=== PATIENT | male | born 1960 | race Caucasian/White ===

== ENCOUNTER 2018-12-21 12:42 | Emergency (ER) | payer OTHER, SELFPAY ==
[2018-12-21 12:50] VITALS: BP 131/91; PULSE 85; RESP 17; TEMP 36.9; BMI 22.0
[2018-12-21 13:00] VITALS: BP 118/93; PULSE 72; RESP 20; O2SAT 98
--- NOTE | 2018-12-21 13:02 | DI.RAD.S_ITS ---
PROCEDURE: XR CHEST 1V INDICATIONS: Chest pain and shortness of breath TECHNIQUE: One view of the chest was acquired. COMPARISON: None. FINDINGS: Surgical changes and devices: None. Lungs and pleura: The left lateral lower lung scarring or atelectasis. The coarse calcification projecting at the right lung base. Lungs are otherwise clear. No pleural effusions or pneumothorax. Mediastinum: Mediastinal contours appear normal. Heart size is normal. Bones and chest wall: No suspicious bony lesions. Overlying soft tissues appear unremarkable. IMPRESSION: Left lower lateral lower lung atelectasis or scar. No other acute process. Dictated by: Valencia Rhodes M.D. on 12/21/2018 at 13:33 Approved by: Valencia Rhodes M.D. on 12/21/2018 at 13:34
--- NOTE | 2018-12-21 13:05 | ED_ITS ---
HPI - SOB/Dyspnea <CARMELITA Fam - Last Filed: 12/21/18 21:42> General Chief Complaint: Shortness of Breath/Dyspnea Stated Complaint: blood pressure issues Time Seen by Provider: 12/21/18 12:45 Source: patient Mode of arrival: ambulatory Limitations: no limitations History of Present Illness HPI Narrative: 58-year-old male with a history of appendectomy, hypertension, and jaw surgery, presents emergency presents emergency department today complaining of decreased appetite for the past week and vomiting every morning for the past week after he tries to drink juice. He states he has also been constipated, his last bowel movement was today after taking Ex-Lax but he states it was small, his last real bowel movement was 3-4 days ago. Patient noticed that he had developed intermittent chest pain today while sitting on the couch, he states it was a dull aching 2/10 located in his right chest that lasted a few minutes and then resolve spontaneously. He also reports shortness of breath for the past 3-4 days, he states this is worse when he tries to go up stairs, he also states it is difficult to take a big breath. Patient states he has smoked a pack of cigarettes a day since age 11 and drinks a 12 pack of beer a week. Reports lightheadedness after standing up the past 2 days. Patient denies headaches, vision changes, chest pain at this time, abdominal pain, diarrhea, fevers, swelling in the legs, or other complaints. Related Data Previous Rx's Medication Instructions Recorded albuterol sulfate 2 puff INHALATION Q4-6H PRN #18 12/21/18 gram ondansetron 4 mg PO Q8H #7 tab 12/21/18 Allergies Allergy/AdvReac Type Severity Reaction Status Date / Time No Known Drug Allergies Allergy Verified 12/21/18 14:19 Review of Systems <CARMELITA Fam - Last Filed: 12/21/18 21:42> Review of Systems Narrative: REVIEW OF SYSTEMS: GENERAL: Denies fever or chills. HENT: No head trauma, hearing loss or sore throat. EYES: No loss of vision, double vision, eye pain, or irritation. CARDIOVASCULAR: Complains of chest pain, see HPI. RESPIRATORY: Complains of shortness of breath, see HPI GASTROINTESTINAL: Complains of diarrhea, see HPI. GENITOURINARY: No flank pain or dysuria. MUSCULOSKELETAL: No pain, weakness, or deformities. INTEGUMENTARY: No rash, lesions, or pruritus. NEURO: No numbness, tingling, memory loss, or confusion. PSYCH: No behavior or mood changes. PFSH <CARMELITA Fam - Last Filed: 12/21/18 21:42> Medical History Hypertension (Acute) Social History (Updated 12/21/18 @ 21:36 by CARMELITA Fam) Smoking Status: Current every day smoker Social History Smoking Status: Current every day smoker Exam <CARMELITA Fam - Last Filed: 12/21/18 21:42> Initial Vital Signs Initial Vital Signs: Vital Signs Temperature 98.5 F 12/21/18 12:50 Pulse Rate 85 12/21/18 12:50 Respiratory Rate 17 12/21/18 12:50 Blood Pressure 131/91 H 12/21/18 12:50 PHYSICAL EXAMINATION: GENERAL: Well groomed, alert, and cooperative. Answers questions promptly and appropriately. Vital signs noted. HENT: Normocephalic, atraumatic. Ear canals patent. Oral mucosa is pink and moist. EYES: Conjunctiva pink, sclera white, no periorbital swelling. CHEST: Normal to inspection and without deformities. CARDIOVASCULAR: S1 and S2 sounds normal. Regular rate and rhythm, no murmurs, clicks, or bruits. No pedal edema. RESPIRATORY: Normal respiratory rate, trachea midline, airway patent. No stridor, nasal flaring or accessory muscle use. Slightly decreased lung sounds to bases bilaterally. No wheezes or crackles auscultated. GASTROINTESTINAL: Bowel sounds normoactive. Abdomen is soft and non-tender. No organomegaly. MUSCULOSKELETAL: Normal gait and coordination. Equal tone and mass bilaterally. EXTREMITIES: CMS intact. Moves all extremities. SKIN: Warm, dry, soft, appropriate color for ethnicity. No lesions, rashes, or wounds. NEURO: Alert and Oriented X 3. Good coordination. No ataxia, or sensory deficits, or cognitive issues. PSYCH: Appropriate affect and mood. <Aylin Cuellar DO - Last Filed: 12/22/18 19:31> Initial Vital Signs Initial Vital Signs: Vital Signs Temperature 98.5 F 12/21/18 12:50 Pulse Rate 85 12/21/18 12:50 Respiratory Rate 17 12/21/18 12:50 Blood Pressure 131/91 H 12/21/18 12:50 Scores <CARMELITA Fam - Last Filed: 12/21/18 21:42> CHADS-VASc Congestive heart failure: no Hypertension: yes Age 75 years or older: no Diabetes mellitus: no Stroke, TIA, or TE: no Vascular disease: no Age 65 to 74 years: no Sex category (female): Male CHADS-VASc Score: 1 Wells' Criteria for PE Clinical signs and symptoms of DVT: No PE is #1 Dx or equally likely: No Heart rate > 100: No Immobilization at least 3 days or surg in previous 4 weeks: No History of PE or DVT: No Hemoptysis: No Malignancy w/Treatment within 6 months or palliative: No Wells' PE Score total: 0 Course <CARMELTIA Fam - Last Filed: 12/21/18 21:42> Course Course Narrative: After administration of the DuoNeb, patient states he is feeling much better. He continued to deny chest pain throughout the emergency department stay. Orders Ordered: Discontinued Medications Albuterol/Ipratropium (Duoneb) 3 ml INH NOW ONE Stop: 12/21/18 13:13 Last Admin: 12/21/18 13:21 Dose: 3 ml Documented by: DANILO Ondansetron HCl (Zofran) 4 mg IV NOW ONE Stop: 12/21/18 13:04 Last Admin: 12/21/18 13:50 Dose: 4 mg Documented by: ANNE Consultations Consultation #1: Patient was staffed with Dr. Cuellar. Vital Signs Vital signs: Vital Signs - 8 hr 12/21/18 14:00 Pulse Rate 53 L Respiratory Rate 19 Blood Pressure [Left Arm] 124/79 Pulse Oximetry 98 <Aylin Cuellar DO - Last Filed: 12/22/18 19:31> Orders Ordered: Discontinued Medications Albuterol/Ipratropium (Duoneb) 3 ml INH NOW ONE Stop: 12/21/18 13:13 Last Admin: 12/21/18 13:21 Dose: 3 ml Documented by: DANILO Ondansetron HCl (Zofran) 4 mg IV NOW ONE Stop: 12/21/18 13:04 Last Admin: 12/21/18 13:50 Dose: 4 mg Documented by: ANNE Vital Signs Vital signs: Vital Signs - 8 hr 12/21/18 14:00 Pulse Rate 53 L Respiratory Rate 19 Blood Pressure [Left Arm] 124/79 Pulse Oximetry 98 MDM - SOB/Dyspnea <FarheenCARMELITA Ramos - Last Filed: 12/21/18 21:42> Medical Records Attestation: I reviewed the patient's medical records. Lab Data Attestation: I reviewed the patient's lab results. Result diagrams: 12/21/18 13:10 12/21/18 13:10 Labs: Lab Results 12/21/18 12/21/18 12/21/18 Range/Units 13:10 13:10 13:10 WBC 7.8 (4.5-11.0) X10^3/uL RBC 4.52 (4.5-5.9) X10^6/uL Hgb 14.8 (13.5-17.5) g/dL Hct 41.9 (41-53) % MCV 92.6 (80-100) fL MCH 32.8 (26-34) PG MCHC 35.4 (30-36) % RDW 12.4 (11.6-14.8) % Plt Count 246 (150-400) X10^3/uL Neut % (Auto) 73.2 (50-75) % Lymph % (Auto) 21.4 L (25-40) % [place] % (Auto) 3.9 (3-14) % Eos % (Auto) 0.4 L (2-4) % Baso % (Auto) 1.1 (0-2) % Neut # (Auto) 5700 (7349-4333) /uL Lymph # (Auto) 1700 (5973-2168) /uL [place] # (Auto) 300 (0-900) /uL Eos # (Auto) 0 (0-450) /uL Baso # (Auto) 100 (0-100) /uL PT 11.9 (10.1-12.7) SECONDS INR 1.0 (0.9-1.3) APTT 26 L (26.4-36.2) SECONDS Sodium 137 (137-145) mmol/L Potassium 3.4 (3.4-5.1) mmol/L Chloride 103 (98-107) mmol/L Carbon Dioxide 22 (22-32) mmol/L BUN 20 (9-20) mg/dL Creatinine 0.90 (0.66-1.25) mg/dL Estimated GFR > 60.0 (>60) mL/min BUN/Creatinine Ratio 22.2 H (6-22) Glucose 140 H (80-110) mg/dL Calcium 9.2 (8.4-10.2) mg/dL Total Bilirubin 1.0 (0.2-1.3) mg/dL AST 29 (17-59) IU/L ALT 25 (21-72) IU/L Alkaline Phosphatase 45 (38-126) U/L Total Creatine Kinase 201 H (55-170) U/L CK-MB (CK-2) 1.50 (<2.37) ng/mL CK-MB (CK-2) Rel Index 0.7 L (1.5-5.0) % Troponin I < 0.012 (0.01-0.034) ng/mL B-Natriuretic Peptide (<100) Total Protein 7.4 (6.3-8.2) g/dL Albumin 4.6 (3.5-5.0) g/dL Globulin 2.8 (1.7-4.1) g/dL Albumin/Globulin Ratio 1.6 (1.0-2.8) Lipase 181 (23-300) U/L 12/21/18 Range/Units 13:10 WBC (4.5-11.0) X10^3/uL RBC (4.5-5.9) X10^6/uL Hgb (13.5-17.5) g/dL Hct (41-53) % MCV (80-100) fL MCH (26-34) PG MCHC (30-36) % RDW (11.6-14.8) % Plt Count (150-400) X10^3/uL Neut % (Auto) (50-75) % Lymph % (Auto) (25-40) % [place] % (Auto) (3-14) % Eos % (Auto) (2-4) % Baso % (Auto) (0-2) % Neut # (Auto) (8327-0273) /uL Lymph # (Auto) (1644-7696) /uL [place] # (Auto) (0-900) /uL Eos # (Auto) (0-450) /uL Baso # (Auto) (0-100) /uL PT (10.1-12.7) SECONDS INR (0.9-1.3) APTT (26.4-36.2) SECONDS Sodium (137-145) mmol/L Potassium (3.4-5.1) mmol/L Chloride (98-107) mmol/L Carbon Dioxide (22-32) mmol/L BUN (9-20) mg/dL Creatinine (0.66-1.25) mg/dL Estimated GFR (>60) mL/min BUN/Creatinine Ratio (6-22) Glucose (80-110) mg/dL Calcium (8.4-10.2) mg/dL Total Bilirubin (0.2-1.3) mg/dL AST (17-59) IU/L ALT (21-72) IU/L Alkaline Phosphatase (38-126) U/L Total Creatine Kinase (55-170) U/L CK-MB (CK-2) (<2.37) ng/mL CK-MB (CK-2) Rel Index (1.5-5.0) % Troponin I (0.01-0.034) ng/mL B-Natriuretic Peptide < 100 (<100) Total Protein (6.3-8.2) g/dL Albumin (3.5-5.0) g/dL Globulin (1.7-4.1) g/dL Albumin/Globulin Ratio (1.0-2.8) Lipase (23-300) U/L Urine Dip Bedside Urine Glucose Negative Bedside Urine Bilirubin - Negative Bedside Urine Ketone - Negative Urine Specific [place] 1.010 Bedside Urine Occult Blood - Negative Bedside Urine pH 6.0 Bedside Urine Protein - Negative Bedside Urine Urobilinogen - Negative Bedside Urine Nitrite - Negative Bedside Urine Leukocytes - Negative Esterase Imaging Data Chest x-ray: Radiologist's impression: [address] [address] XRay Report Signed Patient: Erma Wahl#: [id number] : 9Acct:[id number] Age/Sex: 58 / MDate of Service: 12/21/18 Loc: ED Accession Number: [id number] Procedure: XR chest 1V Ordering Provider: Farheen Ponce PROCEDURE: XR CHEST 1V INDICATIONS: Chest pain and shortness of breath TECHNIQUE: One view of the chest was acquired. COMPARISON: None. FINDINGS: Surgical changes and devices: None. Lungs and pleura: The left lateral lower lung scarring or atelectasis. The coarse calcification projecting at the right lung base. Lungs are otherwise clear. No pleural effusions or pneumothorax. Mediastinum: Mediastinal contours appear normal. Heart size is normal. Bones and chest wall: No suspicious bony lesions. Overlying soft tissues appear unremarkable. IMPRESSION: Left lower lateral lower lung atelectasis or scar. No other acute process. Dictated by: Valencia Rhodes M.D. on 12/21/2018 at 13:33 Approved by: Valencia Rhodes M.D. on 12/21/2018 at 13:34 [facility] Narrative Medical decision making narrative: Suspect that patient's shortness of breath is most likely due to underlying COPD due to his significant smoking history, reduction in symptoms from a DuoNeb, and his description of shortness of breath worse with exertion. I am unsure the exact cause of his fleeting chest pain but I have little concern for ACS as he no longer has chest pain, his EKG was non concerning, and his labs were reassuring as well. It is possible that his diarrhea is due from the Ex-Lax that he took earlier that day. However, he was encouraged to follow up with his primary care provider for further testing if his symptoms continue he as he is at risk for malignancy due to his smoking history. Little concern for infection due to lack of systemic symptoms such as fever, or tachycardia. The concern for an acute abdomen as his lipase, white blood cell count, and other labs are reassuring. Strict return precautions given and follow-up instructions discussed. <Aylin Cuellar, DO - Last Filed: 12/22/18 19:31> Lab Data Labs: Lab Results 12/21/18 12/21/18 12/21/18 Range/Units 13:10 13:10 13:10 WBC 7.8 (4.5-11.0) X10^3/uL RBC 4.52 (4.5-5.9) X10^6/uL Hgb 14.8 (13.5-17.5) g/dL Hct 41.9 (41-53) % MCV 92.6 (80-100) fL MCH 32.8 (26-34) PG MCHC 35.4 (30-36) % RDW 12.4 (11.6-14.8) % Plt Count 246 (150-400) X10^3/uL Neut % (Auto) 73.2 (50-75) % Lymph % (Auto) 21.4 L (25-40) % [place] % (Auto) 3.9 (3-14) % Eos % (Auto) 0.4 L (2-4) % Baso % (Auto) 1.1 (0-2) % Neut # (Auto) 5700 (8731-7618) /uL Lymph # (Auto) 1700 (3755-5540) /uL [place] # (Auto) 300 (0-900) /uL Eos # (Auto) 0 (0-450) /uL Baso # (Auto) 100 (0-100) /uL PT 11.9 (10.1-12.7) SECONDS INR 1.0 (0.9-1.3) APTT 26 L (26.4-36.2) SECONDS Sodium 137 (137-145) mmol/L Potassium 3.4 (3.4-5.1) mmol/L Chloride 103 (98-107) mmol/L Carbon Dioxide 22 (22-32) mmol/L BUN 20 (9-20) mg/dL Creatinine 0.90 (0.66-1.25) mg/dL Estimated GFR > 60.0 (>60) mL/min BUN/Creatinine Ratio 22.2 H (6-22) Glucose 140 H (80-110) mg/dL Calcium 9.2 (8.4-10.2) mg/dL Total Bilirubin 1.0 (0.2-1.3) mg/dL AST 29 (17-59) IU/L ALT 25 (21-72) IU/L Alkaline Phosphatase 45 (38-126) U/L Total Creatine Kinase 201 H (55-170) U/L CK-MB (CK-2) 1.50 (<2.37) ng/mL CK-MB (CK-2) Rel Index 0.7 L (1.5-5.0) % Troponin I < 0.012 (0.01-0.034) ng/mL B-Natriuretic Peptide (<100) Total Protein 7.4 (6.3-8.2) g/dL Albumin 4.6 (3.5-5.0) g/dL Globulin 2.8 (1.7-4.1) g/dL Albumin/Globulin Ratio 1.6 (1.0-2.8) Lipase 181 (23-300) U/L 12/21/18 Range/Units 13:10 WBC (4.5-11.0) X10^3/uL RBC (4.5-5.9) X10^6/uL Hgb (13.5-17.5) g/dL Hct (41-53) % MCV (80-100) fL MCH (26-34) PG MCHC (30-36) % RDW (11.6-14.8) % Plt Count (150-400) X10^3/uL Neut % (Auto) (50-75) % Lymph % (Auto) (25-40) % [place] % (Auto) (3-14) % Eos % (Auto) (2-4) % Baso % (Auto) (0-2) % Neut # (Auto) (4171-1886) /uL Lymph # (Auto) (0850-0463) /uL [place] # (Auto) (0-900) /uL Eos # (Auto) (0-450) /uL Baso # (Auto) (0-100) /uL PT (10.1-12.7) SECONDS INR (0.9-1.3) APTT (26.4-36.2) SECONDS Sodium (137-145) mmol/L Potassium (3.4-5.1) mmol/L Chloride (98-107) mmol/L Carbon Dioxide (22-32) mmol/L BUN (9-20) mg/dL Creatinine (0.66-1.25) mg/dL Estimated GFR (>60) mL/min BUN/Creatinine Ratio (6-22) Glucose (80-110) mg/dL Calcium (8.4-10.2) mg/dL Total Bilirubin (0.2-1.3) mg/dL AST (17-59) IU/L ALT (21-72) IU/L Alkaline Phosphatase (38-126) U/L Total Creatine Kinase (55-170) U/L CK-MB (CK-2) (<2.37) ng/mL CK-MB (CK-2) Rel Index (1.5-5.0) % Troponin I (0.01-0.034) ng/mL B-Natriuretic Peptide < 100 (<100) Total Protein (6.3-8.2) g/dL Albumin (3.5-5.0) g/dL Globulin (1.7-4.1) g/dL Albumin/Globulin Ratio (1.0-2.8) Lipase (23-300) U/L Urine Dip Bedside Urine Glucose Negative Bedside Urine Bilirubin - Negative Bedside Urine Ketone - Negative Urine Specific [place] 1.010 Bedside Urine Occult Blood - Negative Bedside Urine pH 6.0 Bedside Urine Protein - Negative Bedside Urine Urobilinogen - Negative Bedside Urine Nitrite - Negative Bedside Urine Leukocytes - Negative Esterase ECG Data Attestation: I personally reviewed and interpreted this ECG as follows: Prior ECG tracings: not available for review Interpretation: Normal sinus rhythm, rate 75, no st elevations or depressions, no t wave inversions. no priors to compare Discharge Plan Departure Patient Disposition: Home Clinical Impression: Breath shortness Nausea & vomiting Qualifiers: Vomiting type: unspecified Vomiting Intractability: intractable Qualified Code(s): R11.2 - Nausea with vomiting, unspecified Discharge Date/Time: 12/21/18 14:37 Instructions: Chronic Obstructive Pulmonary Disease, DI for Nausea -- Adult Activity Restrictions/Additional Instructions: Thank you for entrusting me with your care today. As discussed, your x-ray, EKG, and labs are negative for any concerning symptoms. I prescribed you medication for nausea as well as an inhaler to use for your shortness of breath. It is very important that you follow-up with your primary care provider in the next few weeks for re-evaluation. Return to the emergency department if you develops chest pain, worsening shortness of breath that does not improve with your inhaler, high fevers, syncope, uncontrollable vomiting, or other concerning symptoms. Prescriptions: New albuterol sulfate 90 mcg/actuation HFA aerosol inhaler 2 puff INHALATION Q4-6H PRN (Reason: shortness of breath or wheezing) Qty: 18 RF: 0 ondansetron 4 mg tablet,disintegrating 4 mg PO Q8H Qty: 7 RF: 0
[2018-12-21] MEDS: ALBUTEROL/IPRATROPIUM 3 ML AMPUL INH (13:21)
[2018-12-21 13:22] VITALS: PULSE 74; RESP 16; O2SAT 98
[2018-12-21 13:22] LABS: Add Manual Diff / Slide Review NO; Basophils Absolute Auto 100 /uL (0-100); Basophils Percent Auto 1.1 % (0-2); Eosinophils Absolute Auto 0 /uL (0-450); Eosinophils Percent Auto 0.4 % (2-4); Hematocrit 41.9 % (41-53); Hemoglobin 14.8 g/dL (13.5-17.5); Lymphocytes Absolute Auto 1700 /uL (1100-4500); Lymphocytes Percent Auto 21.4 % (25-40); Mean Corpuscular HGB Conc 35.4 % (30-36); Mean Corpuscular Hemoglobin 32.8 PG (26-34); Mean Corpuscular Volume 92.6 fL (80-100); Monocytes Absolute Auto 300 /uL (0-900); Monocytes Percent Auto 3.9 % (3-14); Neutrophils Absolute Auto 5700 /uL (1500-7000); Neutrophils Percent Auto 73.2 % (50-75); Platelet Count 246 X10^3/uL (150-400); Red Blood Cell Count 4.52 X10^6/uL (4.5-5.9); Red Cell Distribution Width 12.4 % (11.6-14.8); White Blood Cell Count 7.8 X10^3/uL (4.5-11.0)
[2018-12-21 13:24] LABS: Prothrombin Time 11.9 SECONDS (10.1-12.7)
[2018-12-21 13:27] LABS: PTT Partial Thromboplastin Tim 26 SECONDS (26.4-36.2)
[2018-12-21 13:30] VITALS: BP 120/89; PULSE 77; RESP 20; O2SAT 96
[2018-12-21 13:30] LABS: Albumin 4.6 g/dL (3.5-5.0); Albumin Globulin Ratio 1.6 (1.0-2.8); Alkaline Phosphatase 45 U/L (38-126); BUN Creatinine Ratio 22.2 (6-22); Blood Urea Nitrogen 20 mg/dL (9-20); Calcium 9.2 mg/dL (8.4-10.2); Carbon Dioxide 22 mmol/L (22-32); Chloride 103 mmol/L (98-107); Creatine Kinase 201 U/L (55-170); Estimated Glomerular Filt Rate > 60.0 mL/min (>60); Globulin 2.8 g/dL (1.7-4.1); Glucose 140 mg/dL (80-110); Lipase 181 U/L (23-300); Sodium 137 mmol/L (137-145); Total Protein 7.4 g/dL (6.3-8.2)
[2018-12-21 13:41] LABS: B Type Natriuretic Peptide < 100 (<100); Troponin I < 0.012 ng/mL (0.01-0.034)
[2018-12-21 13:48] LABS: Potassium 3.4 mmol/L (3.4-5.1)
[2018-12-21 13:50] LABS: Alanine Aminotransferase 25 IU/L (21-72); Aspartate Aminotransferase 29 IU/L (17-59)
[2018-12-21] MEDS: ONDANSETRON 4 MG/2 ML INJ IV (13:50)
[2018-12-21 13:52] LABS: CKMB % Relative Index 0.7 % (1.5-5.0)
[2018-12-21 14:00] VITALS: BP 124/79; PULSE 53; RESP 19; O2SAT 98
== END 2018-12-21 14:37 | disposition home or self-care (01) ==
PROVIDERS: Emergency Provider Nurse Practitioner
DX: R11.2 Nausea with vomiting, unspecified (principal); R06.02 Shortness of breath
CPT/HCPCS: 36591; 71045; 80053; 81003; 82550; 82553; 83690; 83880; 84484; 85025; 85610; 85730; 93005; 94640; 96374; 99283; 99285; J2405

== ENCOUNTER 2020-01-12 14:35 | Emergency (ER) | payer OTHER, SELFPAY ==
[2020-01-12] VITALS (12 sets, daily range): BP systolic 101–120; BP diastolic 67–81; PULSE 80–102; RESP 14–21; TEMP 36.4; O2SAT 94–98; BMI 25.9
--- NOTE | 2020-01-12 15:06 | ED_ITS ---
HPI - General Adult General Chief complaint: Dizziness Stated complaint: dizziness while painting Time Seen by Provider: 01/12/20 14:52 Source: patient Mode of arrival: Ambulatory Limitations: no limitations History of Present Illness HPI narrative: Patient is a 59-year-old male with a history of hypertension here for evaluation of dizziness and almost passing out today while he was painting. He states that over the past several days/week he has had dizziness whenever he stands up. He states that he feels like he is going to pass out but after he wakes for few seconds his symptoms seemed to resolve. Does not have any other associated symptoms to include chest pain or palpitations. Today he was painting and going up and down a ladder and had the symptoms occur again. This time they occurred after he had already been standing. His who is a physician evaluated him. She took his blood pressure at home and found him to be hypotensive with a systolic in the 80s and 90s. Also pending to be tachyc ardic into the low 100s. His oxygen saturations are unremarkable. During this time patient states that he was feeling like his heart was beating fast and skipping beats. The time of my evaluation symptoms are resolved. Related Data Previous Rx's Medication Instructions Recorded albuterol sulfate 2 puff INHALATION Q4-6H PRN #18 12/21/18 gram ondansetron 4 mg PO Q8H #7 tab 12/21/18 Allergies Allergy/AdvReac Type Severity Reaction Status Date / Time No Known Drug Allergies Allergy Verified 01/12/20 14:47 Review of Systems Constitutional Constitutional: Denies fatigue and Denies headache(s) ENT Ears, Nose, Mouth, and Throat: Denies vertigo, Reports dizziness and Denies headache(s) Cardiovascular Cardiovascular: Denies chest pain, Reports rapid heart rate, Reports lightheadedness and Denies dyspnea Respiratory Respiratory: Denies cough and Denies dyspnea Gastrointestinal Gastrointestinal: Denies abdominal pain, Denies nausea and Denies vomiting Musculoskeletal Musculoskeletal: Denies arthralgias and Denies myalgias Integumentary/Breasts Skin/Breast: Denies rash Neurologic Neurologic: Denies behavioral changes, Denies vertigo, Reports dizziness and Denies headache(s) Psychiatric Psychiatric: Denies behavioral changes Endocrine Endocrine: Denies fatigue Hematologic/Lymphatic Hematologic/Lymphatic: Denies easy bleeding and Denies easy bruising Patient History Medical History Hypertension (Acute) Social History Smoking Status: Current every day smoker Smoking Status: Current every day smoker alcohol intake frequency: holidays/special occasions only Substance Use Type: does not use Exam Initial Vital Signs Initial Vital Signs: Vital Signs Temperature 97.6 F 01/12/20 14:40 Pulse Rate 102 H 01/12/20 14:40 Respiratory Rate 14 01/12/20 14:40 Blood Pressure 101/67 01/12/20 14:40 Pulse Oximetry 96 01/12/20 14:40 Const General: cooperative and comfortable Limitations: mental status not altered HENMT Head: normal to inspection and normocephalic Resp Effort & Inspection: normal respiratory effort Auscultation: clear to auscultation bilaterally Cardio Rate: regular rate Rhythm: regular rhythm GI Inspection: non-distended Palpation: soft Skin Lesions: no lesions Rashes: no rashes Neuro General: patient alert, patient awake and patient oriented x3 Cranial Nerves: CN's II-XI intact bilaterally Cognition: normal cognition Speech: speech normal Gait: normal gait Extrem General: normal to inspection and capillary refill normal Psych Appearance: grossly normal and well kempt Scores GCS [place] coma scale eye opening: Spontaneous [place] coma scale verbal response: Orientated [place] coma scale motor response: Obey commands [place] coma scale total score: 15 Course Orders Ordered: ED Orders 01/12/20 14:50 Complete Blood Count AUTO DIFF Stat Comprehensive Metabolic Panel Stat Partial Thromboplastin Time Stat Prothrombin Time INR Stat Troponin & CK Cardiac Panel Stat 01/12/20 17:16 Creatinine Urine Random Stat Sodium Urine Random Stat Urinalysis and Microscopic Stat 01/12/20 17:47 Basic Metabolic Panel Stat Discontinued Medications Sodium Chloride (Normal Saline 0.9%) 1,000 mls @ 1,000 mls/hr IV BOLUS ONE Stop: 01/12/20 16:14 Last Infusion: 01/12/20 17:49 Dose: 0 mls/hr Documented by: Admin: 01/12/20 16:01 Dose: 1,000 mls/hr Documented by: LOBO Vital Signs Vital signs: Vital Signs - 8 hr 01/12/20 14:40 01/12/20 15:57 01/12/20 16:00 Temperature 97.6 F Pulse Rate 102 H 88 88 Pulse Rate [Orthostatic Lying] Pulse Rate [Orthostatic Sitting] Pulse Rate [Orthostatic Standing] Respiratory Rate 14 20 19 Blood Pressure 101/67 104/70 Blood Pressure [Orthostatic Lying] Blood Pressure [Orthostatic Sitting] Blood Pressure [Orthostatic Standing] Pulse Oximetry 96 94 94 01/12/20 16:23 01/12/20 16:24 01/12/20 16:25 Temperature Pulse Rate 84 83 95 H Pulse Rate [Orthostatic Lying] Pulse Rate [Orthostatic Sitting] Pulse Rate [Orthostatic Standing] Respiratory Rate 19 21 Blood Pressure 104/72 116/74 111/74 Blood Pressure [Orthostatic Lying] Blood Pressure [Orthostatic Sitting] Blood Pressure [Orthostatic Standing] Pulse Oximetry 96 97 96 01/12/20 16:27 01/12/20 16:30 01/12/20 17:00 Temperature Pulse Rate 83 83 Pulse Rate [Orthostatic Lying] 89 Pulse Rate [Orthostatic Sitting] 91 H Pulse Rate [Orthostatic Standing] 93 H Respiratory Rate 20 18 Blood Pressure 113/80 111/80 Blood Pressure [Orthostatic Lying] 104/72 Blood Pressure [Orthostatic Sitting] 116/74 Blood Pressure [Orthostatic Standing] 111/74 Pulse Oximetry 98 98 01/12/20 17:30 01/12/20 18:00 01/12/20 18:26 Temperature Pulse Rate 84 80 Pulse Rate [Orthostatic Lying] Pulse Rate [Orthostatic Sitting] Pulse Rate [Orthostatic Standing] Respiratory Rate 19 19 Blood Pressure 108/78 120/81 Blood Pressure [Orthostatic Lying] Blood Pressure [Orthostatic Sitting] Blood Pressure [Orthostatic Standing] Pulse Oximetry 98 98 Medical Decision Making Lab Data Lab results reviewed: Yes I reviewed the patient's lab results. Result diagrams: 01/12/20 14:50 01/12/20 17:47 Labs: Lab Results 01/12/20 01/12/20 01/12/20 Range/Units 14:50 14:50 14:50 WBC 9.8 (4.5-11.0) X10^3/uL RBC 4.58 (4.5-5.9) X10^6/uL Hgb 15.2 (13.5-17.5) g/dL Hct 43.9 (41-53) % MCV 95.8 (80-100) fL MCH 33.1 (26-34) PG MCHC 34.6 (30-36) % RDW 13.7 (11.6-14.8) % Plt Count 283 (150-400) X10^3/uL Neut % (Auto) 66.7 (50-75) % Lymph % (Auto) 22.7 L (25-40) % [place] % (Auto) 5.8 (3-14) % Eos % (Auto) 2.6 (2-4) % Baso % (Auto) 2.2 H (0-2) % Neut # (Auto) 6600 (3129-7101) /uL Lymph # (Auto) 2200 (0698-1410) /uL [place] # (Auto) 600 (0-900) /uL Eos # (Auto) 300 (0-450) /uL Baso # (Auto) 200 H (0-100) /uL PT 12.1 (10.1-12.7) SECONDS INR 1.0 (0.9-1.3) APTT 27 (26.4-36.2) SECONDS Sodium 137 (137-145) mmol/L Potassium 4.5 (3.4-5.1) mmol/L Chloride 106 (98-107) mmol/L Carbon Dioxide 23 (22-32) mmol/L BUN 23 H (9-20) mg/dL Creatinine 2.31 H (0.66-1.25) mg/dL Estimated GFR 28.9 L (>60) mL/min BUN/Creatinine Ratio 10.0 (6-22) Glucose 98 (80-110) mg/dL Calcium 9.6 (8.4-10.2) mg/dL Total Bilirubin 0.7 (0.2-1.3) mg/dL AST 67 H (17-59) IU/L ALT 70 H (<50) IU/L Alkaline Phosphatase 76 (38-126) U/L Total Creatine Kinase (55-170) U/L CK-MB (CK-2) (<2.37) ng/mL CK-MB (CK-2) Rel Index (1.5-5.0) % Troponin I (0.01-0.034) ng/mL Total Protein 7.9 (6.3-8.2) g/dL Albumin 4.6 (3.5-5.0) g/dL Globulin 3.3 (1.7-4.1) g/dL Albumin/Globulin Ratio 1.4 (1.0-2.8) Urine Color Urine Appearance Urine pH (4.5-8.0) Ur Specific [place] (1.000-1.035) Urine Protein (Negative) Urine Glucose (UA) (Negative) g/dL Urine Ketones (NEGATIVE) Urine Occult Blood (Negative) Urine Nitrate (Negative) Urine Bilirubin (NEGATIVE) Urine Urobilinogen (0.2) E.U./dL Ur Leukocyte Esterase (NEGATIVE) Urine RBC (0-5/HPF) Urine WBC (0-5/HPF) Ur Squamous Epith Cells (0-5/HPF) Ur Transition Epith Cell (0-5/HPF) Urine Bacteria (None) Hyaline Casts (None) Ur Culture Indicated? Ur Random Sodium (30-90) mmol/L Urine Creatinine mg/dL 01/12/20 01/12/20 01/12/20 Range/Units 14:50 17:16 17:16 WBC (4.5-11.0) X10^3/uL RBC (4.5-5.9) X10^6/uL Hgb (13.5-17.5) g/dL Hct (41-53) % MCV (80-100) fL MCH (26-34) PG MCHC (30-36) % RDW (11.6-14.8) % Plt Count (150-400) X10^3/uL Neut % (Auto) (50-75) % Lymph % (Auto) (25-40) % [place] % (Auto) (3-14) % Eos % (Auto) (2-4) % Baso % (Auto) (0-2) % Neut # (Auto) (8552-0452) /uL Lymph # (Auto) (6584-4441) /uL [place] # (Auto) (0-900) /uL Eos # (Auto) (0-450) /uL Baso # (Auto) (0-100) /uL PT (10.1-12.7) SECONDS INR (0.9-1.3) APTT (26.4-36.2) SECONDS Sodium (137-145) mmol/L Potassium (3.4-5.1) mmol/L Chloride (98-107) mmol/L Carbon Dioxide (22-32) mmol/L BUN (9-20) mg/dL Creatinine (0.66-1.25) mg/dL Estimated GFR (>60) mL/min BUN/Creatinine Ratio (6-22) Glucose (80-110) mg/dL Calcium (8.4-10.2) mg/dL Total Bilirubin (0.2-1.3) mg/dL AST (17-59) IU/L ALT (<50) IU/L Alkaline Phosphatase (38-126) U/L Total Creatine Kinase 730 H (55-170) U/L CK-MB (CK-2) 2.69 H (<2.37) ng/mL CK-MB (CK-2) Rel Index 0.4 L (1.5-5.0) % Troponin I < 0.012 (0.01-0.034) ng/mL Total Protein (6.3-8.2) g/dL Albumin (3.5-5.0) g/dL Globulin (1.7-4.1) g/dL Albumin/Globulin Ratio (1.0-2.8) Urine Color Yellow Urine Appearance Clear Urine pH 5.0 (4.5-8.0) Ur Specific [place] 1.015 (1.000-1.035) Urine Protein Trace H (Negative) Urine Glucose (UA) Negative (Negative) g/dL Urine Ketones Negative (NEGATIVE) Urine Occult Blood 1+ H (Negative) Urine Nitrate Negative (Negative) Urine Bilirubin Negative (NEGATIVE) Urine Urobilinogen 0.2 (0.2) E.U./dL Ur Leukocyte Esterase Negative (NEGATIVE) Urine RBC 0-1/hpf (0-5/HPF) Urine WBC 0-1/hpf (0-5/HPF) Ur Squamous Epith Cells 0-1 /hpf (0-5/HPF) Ur Transition Epith Cell 0-1/hpf (0-5/HPF) Urine Bacteria Occasional (0-1) (None) Hyaline Casts 30-100/lpf (None) Ur Culture Indicated? Cult not indicated Ur Random Sodium 26 L (30-90) mmol/L Urine Creatinine 137.2 mg/dL 01/12/20 Range/Units 17:47 WBC (4.5-11.0) X10^3/uL RBC (4.5-5.9) X10^6/uL Hgb (13.5-17.5) g/dL Hct (41-53) % MCV (80-100) fL MCH (26-34) PG MCHC (30-36) % RDW (11.6-14.8) % Plt Count (150-400) X10^3/uL Neut % (Auto) (50-75) % Lymph % (Auto) (25-40) % [place] % (Auto) (3-14) % Eos % (Auto) (2-4) % Baso % (Auto) (0-2) % Neut # (Auto) (5631-2804) /uL Lymph # (Auto) (6763-1384) /uL [place] # (Auto) (0-900) /uL Eos # (Auto) (0-450) /uL Baso # (Auto) (0-100) /uL PT (10.1-12.7) SECONDS INR (0.9-1.3) APTT (26.4-36.2) SECONDS Sodium 137 (137-145) mmol/L Potassium 4.5 (3.4-5.1) mmol/L Chloride 108 H (98-107) mmol/L Carbon Dioxide 24 (22-32) mmol/L BUN 23 H (9-20) mg/dL Creatinine 1.96 H (0.66-1.25) mg/dL Estimated GFR 34.9 L (>60) mL/min BUN/Creatinine Ratio 11.7 (6-22) Glucose 87 (80-110) mg/dL Calcium 8.4 (8.4-10.2) mg/dL Total Bilirubin (0.2-1.3) mg/dL AST (17-59) IU/L ALT (<50) IU/L Alkaline Phosphatase (38-126) U/L Total Creatine Kinase (55-170) U/L CK-MB (CK-2) (<2.37) ng/mL CK-MB (CK-2) Rel Index (1.5-5.0) % Troponin I (0.01-0.034) ng/mL Total Protein (6.3-8.2) g/dL Albumin (3.5-5.0) g/dL Globulin (1.7-4.1) g/dL Albumin/Globulin Ratio (1.0-2.8) Urine Color Urine Appearance Urine pH (4.5-8.0) Ur Specific [place] (1.000-1.035) Urine Protein (Negative) Urine Glucose (UA) (Negative) g/dL Urine Ketones (NEGATIVE) Urine Occult Blood (Negative) Urine Nitrate (Negative) Urine Bilirubin (NEGATIVE) Urine Urobilinogen (0.2) E.U./dL Ur Leukocyte Esterase (NEGATIVE) Urine RBC (0-5/HPF) Urine WBC (0-5/HPF) Ur Squamous Epith Cells (0-5/HPF) Ur Transition Epith Cell (0-5/HPF) Urine Bacteria (None) Hyaline Casts (None) Ur Culture Indicated? Ur Random Sodium (30-90) mmol/L Urine Creatinine mg/dL ECG Data Attestation: I personally reviewed and interpreted this ECG as follows: Prior ECG tracings: not available for review Interpretation: Sinus rhythm Ventricular rate of 96 Normal QRS Normal QTC No ST T wave changes MDM Narrative Medical decision making narrative: Patient with an unremarkable neurologic exam. Patient has sinus rhythm on the EKG. Orthostatics unremarkable. Initial lab tests show an acute kidney injury with an elevation in his creatinine and a decrease in his GFR. Further study show that he has a FENa of 0.3 which points towards a pre renal. He was given fluids. Repeat creatinine shows that this improved. I do suspect that potentially he has a dehydration component to his symptoms. He states he feels much better after the fluids. I am also concerned that potentially he had an episode of atrial fibrillation given his symptoms at home and what his who is also a physician stated with regard to his vital signs. He has never been diagnosed with AFib in the past. Informed him that he should talk with his primary provider about a Holter monitor. We also discussed increasing his fluid intake. He is going to hold his lisinopril for the next couple days and take his blood pressure at home off of this medication. He was given strict return precautions with regard to all of his findings here today. I feel we can hold on head CT. Low suspicion for CVA or TIA based on his presenting symptoms. Also low suspicion for ACS. He expressed understanding and agreement. Discharge Plan Departure Patient Disposition: Home Clinical Impression: Acute kidney injury, Pre-syncope Instructions: DI for Dizziness-Nonvertigo Activity Restrictions/Additional Instructions: Recommend that you increase your fluid intake over the next couple days. It is important that you follow-up with your primary doctor to have repeat kidney function studies. I also recommend that you hold on your lisinopril. Take your blood pressure on a daily basis like we discussed. Also recommend you talk with your primary provider about a Holter monitor. Return to the emergency department for any new or worsening symptoms Prescriptions: No Action albuterol sulfate 90 mcg/actuation HFA aerosol inhaler 2 puff INHALATION Q4-6H PRN (Reason: shortness of breath or wheezing) Qty: 18 RF: 0 ondansetron 4 mg tablet,disintegrating 4 mg PO Q8H Qty: 7 RF: 0
[2020-01-12 15:31] LABS: Add Manual Diff / Slide Review NO; Basophils Absolute Auto 200 /uL (0-100); Basophils Percent Auto 2.2 % (0-2); Eosinophils Absolute Auto 300 /uL (0-450); Eosinophils Percent Auto 2.6 % (2-4); Hematocrit 43.9 % (41-53); Hemoglobin 15.2 g/dL (13.5-17.5); Lymphocytes Absolute Auto 2200 /uL (1100-4500); Lymphocytes Percent Auto 22.7 % (25-40); Mean Corpuscular HGB Conc 34.6 % (30-36); Mean Corpuscular Hemoglobin 33.1 PG (26-34); Mean Corpuscular Volume 95.8 fL (80-100); Monocytes Absolute Auto 600 /uL (0-900); Monocytes Percent Auto 5.8 % (3-14); Neutrophils Absolute Auto 6600 /uL (1500-7000); Neutrophils Percent Auto 66.7 % (50-75); Platelet Count 283 X10^3/uL (150-400); Red Blood Cell Count 4.58 X10^6/uL (4.5-5.9); Red Cell Distribution Width 13.7 % (11.6-14.8); White Blood Cell Count 9.8 X10^3/uL (4.5-11.0)
[2020-01-12 15:32] LABS: Prothrombin Time 12.1 SECONDS (10.1-12.7)
[2020-01-12 15:34] LABS: PTT Partial Thromboplastin Tim 27 SECONDS (26.4-36.2)
[2020-01-12 15:36] LABS: Creatine Kinase 730 U/L (55-170)
[2020-01-12 15:37] LABS: Alanine Aminotransferase 70 IU/L (<50); Albumin 4.6 g/dL (3.5-5.0); Albumin Globulin Ratio 1.4 (1.0-2.8); Alkaline Phosphatase 76 U/L (38-126); Aspartate Aminotransferase 67 IU/L (17-59); Bilirubin Total 0.7 mg/dL (0.2-1.3); Blood Urea Nitrogen 23 mg/dL (9-20); Calcium 9.6 mg/dL (8.4-10.2); Carbon Dioxide 23 mmol/L (22-32); Chloride 106 mmol/L (98-107); Estimated Glomerular Filt Rate 28.9 mL/min (>60); Globulin 3.3 g/dL (1.7-4.1); Glucose 98 mg/dL (80-110); HEMOLYSIS < 15 (0-50); Potassium 4.5 mmol/L (3.4-5.1); Sodium 137 mmol/L (137-145); Total Protein 7.9 g/dL (6.3-8.2)
[2020-01-12 15:49] LABS: Troponin I < 0.012 ng/mL (0.01-0.034)
[2020-01-12 15:51] LABS: CKMB % Relative Index 0.4 % (1.5-5.0); Creatine Kinase MB 2.69 ng/mL (<2.37)
[2020-01-12] MEDS: SODIUM CHLORIDE 0.9% 1,000 ML 1000 ML IV (16:01)
[2020-01-12 17:38] LABS: Creatinine Urine Random 137.2 mg/dL; Sodium Urine Random 26 mmol/L (30-90)
[2020-01-12 17:40] LABS: Appearance Urine UA CLEAR; Bilirubin Urine UA NEGATIVE (NEGATIVE); Color Urine UA YELLOW; Glucose Urine UA NEGATIVE (Negative); Ketones Urine UA NEGATIVE (NEGATIVE); Leukocyte Esterase Urine UA NEGATIVE (NEGATIVE); Nitrite Urine UA NEGATIVE (Negative); Occult Blood Urine UA 1+ (Negative); Protein Urine UA TRACE (Negative); Specific Gravity Urine UA 1.015 (1.000-1.035); Urobilinogen Urine UA 0.2 E.U./dL (0.2)
[2020-01-12 17:57] LABS: RBC Urine 0-1/HPF (0-5/HPF); Squamous Epithelial Cell Urine 0-1 /HPF (0-5/HPF); Transitional Epi Cells Urine 0-1/HPF (0-5/HPF); WBC Urine 0-1/HPF (0-5/HPF)
[2020-01-12 17:58] LABS: Bacteria Urine Occasional (0-1); Hyaline Casts Urine 30-100/LPF
[2020-01-12 17:59] LABS: Culture Indicated Urine Cult Not Indicated
[2020-01-12 18:10] LABS: BUN Creatinine Ratio 11.7 (6-22); Blood Urea Nitrogen 23 mg/dL (9-20); Calcium 8.4 mg/dL (8.4-10.2); Carbon Dioxide 24 mmol/L (22-32); Chloride 108 mmol/L (98-107); Estimated Glomerular Filt Rate 34.9 mL/min (>60); Glucose 87 mg/dL (80-110); HEMOLYSIS < 15 (0-50); Potassium 4.5 mmol/L (3.4-5.1); Sodium 137 mmol/L (137-145)
== END 2020-01-12 18:34 | disposition home or self-care (01) ==
PROVIDERS: Emergency Provider Emergency Medicine
DX: N17.9 Acute kidney failure, unspecified (principal); R55 Syncope and collapse
CPT/HCPCS: 36415; 80048; 80053; 81001; 82550; 82553; 82570; 84300; 84484; 85025; 85610; 85730; 93005; 96360; 96361; 99284